=== PATIENT | female | born 1995 | race Caucasian/White ===

== ENCOUNTER 2021-02-01 18:53 | Emergency (ER) | payer BC ==
[2021-02-01 19:23] VITALS: BP 123/82; PULSE 91
--- NOTE | 2021-02-01 19:26 | EDM.PDOC ---
"ED HPI GENERAL MEDICAL PROBLEM - General Chief Complaint: Neurological Problem Stated Complaint: RIGHT SIDE FACIAL NUMBNESS PER PT Time Seen by Provider: 02/01/21 19:10 Source of Information: Reports: Patient History Limitations: Reports: No Limitations - History of Present Illness INITIAL COMMENTS - FREE TEXT/NARRATIVE: This 25 yo female patient reports to the ED with right sided facial weakness and numbness. The patient reports she woke up this morning noticing a swollen lymph node on her right neck. As the day progressed, the patient started to notice right sided facial numbness that seemed to be getting worse. The patient has no history of similar symptoms in the past and denies any recent trauma. The patient denies any dizziness, limb weakness, difficulties ambulating or changes in coordination. Onset: Today Duration: Hour(s):, Constant, Getting Worse Location: Reports: Face (Right sided facial weakness and numbness) Quality: Reports: Other Severity: Moderate Improves with: Reports: None Worsens with: Reports: None Associated Symptoms: Reports: No Other Symptoms - Related Data Allergies Allergy/AdvReac Type Severity Reaction Status Date / Time No Known Allergies Allergy Verified 05/24/18 17:37 Home Meds: Home Meds Escitalopram [Lexapro] 10 mg PO DAILY 04/10/16 [History] Acetaminophen [Tylenol Extra Strength] 500 mg PO Q4H 05/24/18 [History] Pnv No.103/Folic/Om3s/Fish Oil [ Gummies] 1 tab PO DAILY 05/24/18 [History] Past Medical History - Past Health History Medical/Surgical History: Denies Medical/Surgical History HEENT History: Reports: None, Other (See Below) Cardiovascular History: Reports: None Respiratory History: Reports: Other (See Below) Other Respiratory History: chest tube when pt was a baby Gastrointestinal History: Reports: None Genitourinary History: Reports: None PEDIATRIC LPN History: Reports: Musculoskeletal History: Reports: None Neurological History: Reports: None Psychiatric History: Reports: Anxiety, Depression Endocrine/Metabolic History: Reports: None Hematologic History: Reports: None Immunologic History: Reports: None Oncologic (Cancer) History: Reports: None, Other (See Below) Other Oncologic History: 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 Dermatologic History: Reports: None - Infectious Disease History Infectious Disease History: Reports: None - Past Surgical History Head Surgeries/Procedures: Reports: None HEENT Surgical History: Reports: Other (See Below) Other HEENT Surgeries/Procedures: deviated septum Social & Family History - Family History Family Medical History: No Pertinent Family History - Caffeine Use Caffeine Use: Reports: Coffee, Soda - Living Situation & Occupation Living situation: Reports: with Significant Other Occupation: Unemployed ED ROS GENERAL - Review of Systems Review Of Systems: Comprehensive ROS is negative, except as noted in HPI. ED EXAM, NEURO - Physical Exam Exam: See Below Exam Limited By: No Limitations General Appearance: Alert, WD/WN, Anxious, Mild Distress Eye Exam: Right Eye: Other (difficulties closing right eye), Bilateral Eye: EOMI, PERRL Ears: Normal External Exam, Normal Canal, Hearing Grossly Normal, Normal TMs Nose: Normal Inspection, Normal Mucosa, No Blood Throat/Mouth: Normal Inspection, Normal Lips, Normal Teeth, Normal Gums, Normal Oropharynx, Normal Voice, No Airway Compromise Head Exam: Other (Right sided facial weakness) Neck: Lymphadenopathy (R), Tender Lateral (Right side) Respiratory/Chest: No Respiratory Distress, Lungs Clear, Normal Breath Sounds, No Accessory Muscle Use, Chest Non-Tender Cardiovascular: Normal Peripheral Pulses, Regular Rate, Rhythm, No Edema, No Gallop, No JVD, No Murmur, No Rub GI/Abdominal: Normal Bowel Sounds, Soft, Non-Tender, No Organomegaly, No Distention, No Abnormal Bruit, No Mass (Female) Exam: Deferred Rectal (Female) Exam: Deferred Neurological: Alert, Normal Mood/Affect, Normal Dorsiflexion, CN II-XII Intact, Normal Plantar Flexion, Normal Gait, Normal Reflexes, No Motor/Sensory Deficits, Oriented x 3 Back Exam: Normal Inspection, Full Range of Motion, NT Extremities: Normal Inspection, Normal Range of Motion, Non-Tender, No Pedal Edema, Normal Capillary Refill Psychiatric: Anxious Skin Exam: Warm, Dry, Intact, Normal Color, No Rash Course - Vital Signs Last Recorded V/S: Last Vital Signs Temp 97.8 F 02/01/21 19:06 Pulse 91 02/01/21 19:06 Resp 16 02/01/21 19:06 BP 123/82 02/01/21 19:06 Pulse Ox 98 02/01/21 19:06 - Orders/Labs/Meds Orders: Active Orders 24 hr Category Date Time Status Max Facial Sinus wo Cont [CT] Urgent Exams 02/01/21 19:17 Ordered CULTURE STREP A CONFIRMATION [RM] Stat Lab 02/01/21 19:30 Results STREP SCRN A RAPID W CULT CONF [] Stat Lab 02/01/21 19:17 Ordered Labs: Laboratory Tests 02/01/21 02/01/21 Range/Units 19:35 19:35 WBC 10.5 H (5.0-10.0) 10^3/uL RBC 4.68 (4.2-5.4) 10^6/uL Hgb 13.3 (12.0-16.0) g/dL Hct 40.3 (37.0-47.0) % MCV 86.1 (80-100) fL MCH 28.4 (27.0-34.0) pg MCHC 33.0 (33.0-35.0) g/dL Plt Count 420 D (150-450) 10^3/uL Neut % (Auto) 59.3 (42.2-75.2) % Lymph % (Auto) 31.0 (20.5-50.1) % Mclean % (Auto) 7.1 (2-8) % Eos % (Auto) 2.3 (1.0-3.0) % Baso % (Auto) 0.3 (0.0-1.0) % ESR 13 (0-20) mm/hr Sodium 139 (136-145) mmol/L Potassium 4.3 (3.5-5.1) mmol/L Chloride 102 (98-107) mmol/L Carbon Dioxide 27 (21-32) mmol/L Anion Gap 14.3 H (7-13) mEq/L BUN 11 (7-18) mg/dL Creatinine 0.73 (0.55-1.02) mg/dL Est Cr Clr Drug Dosing 101.73 mL/min Estimated GFR (MDRD) > 60 BUN/Creatinine Ratio 15.1 (No establ ref range) Glucose 95 (70-99) mg/dL Calcium 8.4 L (8.5-10.1) mg/dL Total Bilirubin 0.2 (0.2-1.0) mg/dL AST 11 L (15-37) U/L ALT 29 (14-59) U/L Alkaline Phosphatase 129 H (46-116) U/L C-Reactive Protein 1.7 H (0.0-0.9) mg/dL Total Protein 7.4 (6.4-8.2) g/dL Albumin 3.5 (3.4-5.0) g/dL Globulin 3.9 Albumin/Globulin Ratio 0.9 - Radiology Interpretation Free Text/Narrative:: [facility] [place] [facility] Final Radiology Report with Addendum Call: [phone] assistance Online chat: [email or web address] Name: KRISHNA REYES Age: 25Years F Date: 02/01/2021 SSN: -- : [id number] Study: CT HEAD WO CONT Requesting Physician: Milind Priest Images: 140 Addl Studies: Provided Clinical History: Right sided facial weakness (started this morning) Contrast: Without Contrast Medium: Contrast Amount: Contrast Method: Page 1 of 2 Addendum created by Greg Adame MD on 02/01/2021 7:59 PM Central Time ([place] & [place]): THIS REPORT CONTAINS FINDINGS THAT MAY BE CRITICAL TO PATIENT CARE. The findings were verbally communicated via telephone conference with Milind Priest at 7:59 PM CDT on 02/01/2021. The findings were acknowledged and understood. Initial Report created on 02/01/2021 7:49 PM Central Time ([place] & [place]): PROCEDURE INFORMATION: Exam: CT Head Without Contrast Exam date and time: 02/01/2021 7:27 PM Age: 25 years old Clinical indication: Weakness, facial; Additional info: Right sided facial weakness (started this morning) TECHNIQUE: Imaging protocol: Computed tomography of the head without contrast. Radiation optimization: All CT scans at this facility use at least one of these dose optimization techniques: automated exposure control; mA and/or kV adjustment per patient size (includes targeted exams where dose is matched to clinical indication); or iterative reconstruction. Other technique: STROKE PROTOCOL was implemented. COMPARISON: No relevant prior studies available. FINDINGS: Brain: Normal. No hemorrhage. Unremarkable white matter. No mass effect. Cerebral ventricles: No ventriculomegaly. Paranasal sinuses: Visualized sinuses are unremarkable. No fluid levels. Mastoid air cells: Visualized mastoid air cells are well aerated. Bones/joints: Unremarkable. No acute fracture. Soft tissues: Unremarkable. KRISHNA REYES | Final Radiology Report CONFIDENTIALITY STATEMENT This report is intended only for use by the referring physician, and only in accordance with law. If you received this in error, call [phone]. Page 2 of 2 IMPRESSION: No acute intracranial abnormality. ASSESSMENT: ASPECTS ([place] Stroke Program Early CT Score) is 10. Thank you for allowing us to participate in the care of your patient. Dictated and Authenticated by: Greg Adame MD 02/01/2021 7:49 PM Central Time ([place] & [place]) [facility] Final Radiology Report Call: [phone] assistance Online chat: [email or web address] Name: KRISHNA REYES Age: 25Years F Date: 02/01/2021 SSN: -- : [id number] Study: CT MAX FACIAL SINUS WO CONT Requesting Physician: Milind Priest Images: 213 Addl Studies: Provided Clinical History: Right sided facial weakness (started this morning) Contrast: Without Contrast Medium: Contrast Amount: Contrast Method: CONFIDENTIALITY STATEMENT This report is intended only for use by the referring physician, and only in accordance with law. If you received this in error, call [phone]. Page 1 of 1 PROCEDURE INFORMATION: Exam: CT Maxillofacial Without Contrast Exam date and time: 02/01/2021 7:27 PM Age: 25 years old Clinical indication: Other: Right sided facial weakness; Additional info: Right sided facial weakness (started this morning) TECHNIQUE: Imaging protocol: Computed tomography images of the face without contrast. Radiation optimization: All CT scans at this facility use at least one of these dose optimization techniques: automated exposure control; mA and/or kV adjustment per patient size (includes targeted exams where dose is matched to clinical indication); or iterative reconstruction. COMPARISON: No relevant prior studies available. FINDINGS: Orbital cavity: Orbits are normal. Globes are unremarkable. Bones/joints: No acute fracture. Paranasal sinuses: Normal. No air-fluid levels. Soft tissues: Unremarkable. IMPRESSION: No acute findings. Thank you for allowing us to participate in the care of your patient. Dictated and Authenticated by: Baljit Petty MD 02/01/2021 8:53 PM Central Time ([place] & [place]) Departure - Departure Time of Disposition: 20:59 Disposition: Home, Self-Care 01 Condition: Fair Clinical Impression: Anna palsy - Discharge Information *PRESCRIPTION DRUG MONITORING PROGRAM REVIEWED*: Not Applicable *COPY OF PRESCRIPTION DRUG MONITORING REPORT IN PATIENT MAYE: Not Applicable Instructions: Anna Palsy, Adult Forms: ED Department Discharge Care Plan Goals: The patient was advised of the examination, lab and CT results during the visit. The patient was given an IV dose of SoluMedrol while in the ED. The patient was discharged with scripts for 1) Prednisone 60 mg daily for 5 days, 50 mg daily for 1 day, 40 mg daily for 1 day, 30 mg daily fo 1 day, 20 mg daily for 1 day and 10 mg daily for 1 day and 2) Valacyclovir (1000 mg) #10 to take 1 by mouth 2 times per day for 5 days. If the patient has any additional symptoms or concerns, the patient should either return to the emergency department or visit her primary care facility. Sepsis Event Note (ED) - Focused Exam Vital Signs: Vital Signs Temp Pulse Resp BP Pulse Ox 02/01/21 19:06 97.8 F 91 16 123/82 98 - My Orders Last 24 Hours: My Active Orders 02/01/21 19:17 Max Facial Sinus wo Cont [CT] Urgent STREP SCRN A RAPID W CULT CONF [RM] Stat 02/01/21 19:30 CULTURE STREP A CONFIRMATION [RM] Stat - Assessment/Plan Last 24 Hours: My Active Orders 02/01/21 19:17 Max Facial Sinus wo Cont [CT] Urgent STREP SCRN A RAPID W CULT CONF [RM] Stat 02/01/21 19:30 CULTURE STREP A CONFIRMATION [RM] Stat"
--- NOTE | 2021-02-01 19:50 | CT ---
PROCEDURE INFORMATION: Exam: CT Head Without Contrast Exam date and time: 02/01/2021 7:27 PM Age: 25 years old Clinical indication: Weakness, facial; Additional info: Right sided facial weakness (started this morning) TECHNIQUE: Imaging protocol: Computed tomography of the head without contrast. Radiation optimization: All CT scans at this facility use at least one of these dose optimization techniques: automated exposure control; mA and/or kV adjustment per patient size (includes targeted exams where dose is matched to clinical indication); or iterative reconstruction. Other technique: STROKE PROTOCOL was implemented. COMPARISON: No relevant prior studies available. FINDINGS: Brain: Normal. No hemorrhage. Unremarkable white matter. No mass effect. Cerebral ventricles: No ventriculomegaly. Paranasal sinuses: Visualized sinuses are unremarkable. No fluid levels. Mastoid air cells: Visualized mastoid air cells are well aerated. Bones/joints: Unremarkable. No acute fracture. Soft tissues: Unremarkable. IMPRESSION: No acute intracranial abnormality. ASSESSMENT: ASPECTS ([place] Stroke Program Early CT Score) is 10.
[2021-02-01 19:55] LABS: ANION GAP 14.3 mEq/L (7-13); CHLORIDE,CL 102 mmol/L (98-107); SODIUM,NA 139 mmol/L (136-145)
--- NOTE | 2021-02-01 20:54 | CT ---
PROCEDURE INFORMATION: Exam: CT Maxillofacial Without Contrast Exam date and time: 02/01/2021 7:27 PM Age: 25 years old Clinical indication: Other: Right sided facial weakness; Additional info: Right sided facial weakness (started this morning) TECHNIQUE: Imaging protocol: Computed tomography images of the face without contrast. Radiation optimization: All CT scans at this facility use at least one of these dose optimization techniques: automated exposure control; mA and/or kV adjustment per patient size (includes targeted exams where dose is matched to clinical indication); or iterative reconstruction. COMPARISON: No relevant prior studies available. FINDINGS: Orbital cavity: Orbits are normal. Globes are unremarkable. Bones/joints: No acute fracture. Paranasal sinuses: Normal. No air-fluid levels. Soft tissues: Unremarkable. IMPRESSION: No acute findings.
[2021-02-01] MEDS ORDERED: methylPREDNISolone Sodium Succinate 125 MG/2 ML SDV IVPUSH ONE (20:58)
== END 2021-02-01 21:14 | disposition home or self-care (01) ==
LOC: DL.ED 18:53
DX: G51.0 Bell's palsy (principal)
CPT/HCPCS: 36415; 70450; 70486; 80053; 85025; 85651; 86140; 87081; 87430; 96374; 99283; 99285-25; J2930